=== PATIENT | female | born 1950 | race Caucasian/White ===

== ENCOUNTER 2019-05-29 19:53 | Inpatient (IN) | payer MEDICARE, OTHER ==
[2019-05-29 20:35] VITALS: BMI 33.5
[2019-05-29] MEDS ORDERED: Furosemide 20 MG/2 ML VIAL SLOW IVP SCH (21:45)
[2019-05-29] MEDS: Diltiazem 125 MG in Sodium Chloride 0.9% 100 ML IVPB SCH (22:46)
[2019-05-29] MEDS ORDERED: hydrOXYzine 25 MG TAB PO PRN (23:35)
[2019-05-29] MEDS: Nicotine 14 MG PATCH TD PRN (23:58)
--- NOTE | 2019-05-30 00:34 | PDOC.FPRHP ---
- History of Present Illness Chief Complaint: Dyspnea, LE Edema History of Present Illness: Pt is a 68 yo female with no significant PMH as she has not been to see a doctor in 10-15 years, 1.5 ppd smoking hx who presented to [facility] for increasing shortness of breath, LE edema. A year ago she began experiencing shortness of breath. A few months ago she experienced worsening SOB, LE edema. She now has difficulty ambulating room to room w/o becoming significantly dehydrated. She would be unable to walk a flight of stairs. Last week she noted her heart rate to be abnormal. She decided to make an appt with Dr. Glaser who noted a-fib and sent her to [facility]. At [facility] she was found to be in a-fib with RVR, BNP 269, hgb 5.2. She was administered dilt x 2 for rate control. She noted decreased from 1.5 ppd to 4 cigs 2/2 sob. She denies bleeding, hematochezia, melena, fever, chills, N/V, diarrhea, urinary changes. Endorsed intermittent constipation requring ducolax and occassionally milk of magnesia. She takes Advil 400 mg daily. Never had a colonoscopy. Unsure of family hx as adopted. - Allergies/Adverse Reactions Allergies Allergy/AdvReac Type Severity Reaction Status Date / Time No Known Drug Allergies Allergy Verified 05/29/19 22:32 - Home Medications Medication Instructions Recorded Confirmed Type Ibuprofen [Advil] 400 mg PO Q6HR PRN 05/29/19 05/29/19 History - History PMHx: Anxiety, Panic Attacks, GERD, Umbilical Hernia, L pneumothorax in her 20's PSHx: hysterectomy, tonsillectomy FHx: Adopted Social: Smokes 1.5 ppd, denies drugs, occasional alcohol use, lives in [place] with - Review of Systems General: reports: weight/appetite/sleep changes. denies: fever/chills ENT: denies: nasal congestion, rhinorrhea Respiratory: reports: shortness of breath, exercise intolerance. denies: cough , congestion Cardiovascular: reports: palpitation, edema, paroxysmal nocturnal dyspnea, orthopnea. denies: chest pain Gastrointestinal: reports: constipation. denies: nausea, vomiting, diarrhea, GI bleeding Genitourinary: denies: incontinence, dysuria Skin: denies: rashes, lesions Musculoskeletal: reports: swelling. denies: pain, tenderness Neurological: denies: numbness, syncope Psychological: denies: anxiety, depression - Vital signs BP: 115/68 HR: 102 RR: 20 Tmax: Afebrile Pox: 96% on RA Wt: 99.9 kg - Physical Exam Constitutional: NAD, awake, alert and oriented HEENT: PERRLA, EOMI Neck: FROM, trachea midline -Neck: Significant JVD present, pulsating -Heart: Irregular rate and rhythm FMR H&P: Results - Labs Result Diagrams: 05/30/19 01:57 05/30/19 01:57 - EKG Interpretation EKG: A-fib w/ RVR, no st changes - Radiology Interpretation Chest x-ray Status: image reviewed by me (Pulmonary congestion, cardiomegaly) FMR H&P: A/P - Problem List (1) Congestive heart failure Current Visit: Yes Status: Acute Code(s): I50.9 - HEART FAILURE, UNSPECIFIED (2) Atrial fibrillation with rapid ventricular response Current Visit: Yes Status: Acute Code(s): I48.91 - UNSPECIFIED ATRIAL FIBRILLATION (3) Microcytic anemia Current Visit: Yes Status: Acute Code(s): D50.9 - IRON DEFICIENCY ANEMIA, UNSPECIFIED (4) Leg edema Current Visit: Yes Status: Acute Code(s): R60.0 - LOCALIZED EDEMA (5) Umbilical hernia Current Visit: Yes Status: Acute Code(s): K42.9 - UMBILICAL HERNIA WITHOUT OBSTRUCTION OR GANGRENE - Plan Pt is a 68 yo female with no previous health care for 10-15 years who presents with a year history of progressively worsening dyspnea, LE edema who presents for atrial fibrillation w/ RVR, congestive heart failure, and microcytic anemia: # A-Fib w/ RVR - cardiology consult in the am - cardizem IV x 2 before admission, started cardizem drip on admission - rate well controlled # Congestive Heart Failure BNP 269, cardiomegaly on CXR - cardiology consult in the am - lasix 20 mg IV daily to help with diuresis - daily weights - consult cardiac rehab - consult PT/OT - Lipid panel pending - Mg pending - echo pending # Microcytic Anemia Hgb 5.2, MCV 60.1 - transfused 2 U prbc's, pending repeat h/h - monitor for increasing overload - pending iron studies # Insomnia - atarax qhs prn # Tobacco Use - nicotine patch prn # Umbilical Hernia - follow up outpt VTE: held due to anemia, possible bleed Fluids: None Diet: NPO Code: Full Dispo: > 2 days FMR H&P: Upper Level - Plan Date/Time: 05/30/19 0033 IAmy, have evaluated this patient and agree with findings/plan as outlined by sports broadcasting internship resident. Pertinent changes/additions are listed here. Pt is a 68yo F with no PMH who presents as transfer from [facility] after being sent by PCP, Dr. Hayes for evaluation of irregular P and tachycardia. Prior to todays office visit, she hadn't seen a doctor in 10-15yrs. In [facility] ED was found to be in Afib with RVR at a rate of 128. She received two doses of IV diltiazem with rate of 105 at transfer. She was also found to have hgb 5 , and was transfused 1u pRBCs. She reports 3 month hx of equal LE edema, orthopnea, SOB, and SNYDER. She reports 1 month hx of palpitations. She denies hematochezia/melena, unexplained wt loss. She takes Advil 800mg daily. She reports constipation with about 3 BM/wk, usually requiring stool softners or laxatives at least once weekly. VS: T97.8, P101, R20, BP115/68, O296% RA PE: Gen: obese, appears older than stated age, NAD HEENT: Moist MM, no LAD, + JVD Heart: Irregularly irregular, no murmurs or extra sounds. Distal pulses 2+ Lungs: Crackles at the bases b/l. No increased work of breathing Abd: soft, ttp periumbilical where there is a small reducible umbilical hernia, BS+ Ext: 3+ pitting edema b/l LE up to knees, no erythema, heat. Neg Homans sign b/ l Skin: no rashes or wounds present Psych: AOx3, appears anxious Pertinent Labs/Imaging: EKG: Afib with RVR CXR with enlarged heart and increased pulmonary vasculature. CTabd- fat containing abd hernia, small b/l pleural effusions, moderate pericardial effusion, cholelithiasis, mildy prominent L renal pelvis, nonobstructing renal calculi WBC 5.5, Hgb 5.2, Hct 18.8, MCV 60.1, Plt 425, PT 17.5, INR 1.4, PTT 31.6, BNP 269.4 A/P: Likely New Onset Acute CHF Exacerbation: 3-4 month hx of worsening SNYDER, orthopnea and LE edema. BNP 269. CXR with enlarged heart and vasc congestion. Echo pending. Will treat with IV Lasix. Will record strict IO and daily wt. Fluid restrict to 1800ml. Consult Cardiology to determine need for stress vs cath. NPO at midnight. Risk stratify with FLP, A1c. New Onset Afib with RVR Loading dose IV Diltiazem improved rate to 100. Will start diltiazem drip and titrate to keep rate <110. Will hold off on anticoagulation d/t Hgb of 5 and unk source. -[id number]- 3 vs HASBLED-3 -Order TSH -Consult cardiology as above for further recommendations. Microcytic Anemia: s/p 1U pRBC's, will order 1 more. Not reporting active GI bleed. Trend H/H 4h post 2nd unit. FOBT, Fe studies. Pericardial Effusion: Could be related to CHF vs malignancy vs idiopathic Cholelithiasis: Pt asymptomatic at this point. No need for RUQ us inpatient. LFT's wnl. Tobacco Use: Pt reports she is quitting today. Encourage cessation. Anxiety: Atarax prn. DVT Ppx: SCD GI Ppx: Protonix Dispo: LOS >48h Addendum - Attending - Attending Attestation Date/Time: 05/30/19 5448 I personally evaluated the patient and discussed the management with Dr. Noriega and Tana. I agree with the History, Examination, Assessment and Plan documented above with any addition or exceptions noted below.
[2019-05-30 02:34] LABS: Anion Gap 13 mmol/L (10-20); BUN (Urea Nitrogen) 8 mg/dL (9.8-20.1); Calc. Creatinine Clearance 139 mL/min (70-130); Calcium 8.7 mg/dL (7.8-10.44); Carbon Dioxide 21 mmol/L (23-31); Cardiac Risk 3.2 (Less than 4.5); Chloride 111 mmol/L (98-107); Estimated GFR-MDRD Greater than 90; Glucose 115 mg/dL (80-115); Iron 11 ug/dL (50-170); Magnesium 2.2 mg/dL (1.6-2.6); Potassium 3.6 mmol/L (3.5-5.1); Sodium 141 mmol/L (136-145); Transferrin, Serum 383 mg/dL (173-360)
[2019-05-30 02:35] LABS: #Lymphocytes 1.9 thou/uL (1.20-3.40); #Monocytes 0.4 thou/uL (0.11-0.59); %Basophils 0.7 % (0.0-1.0); %Eosinophils 0.7 % (0.0-10.0); %Monocytes 6.2 % (0.0-10.0); %Neutrophils 63.3 % (42.0-75.0); Anisocytosis MODERATE=16-30 cells (100X) (0-5/hpf); Hemoglobin 6.1 g/dL (12.0-16.0); Hypochromia MODERATE=16-30 cells (100X) (0-5/hpf); Large Platelets SLIGHT; MDiff Complete? YES; Mean Corpuscular HGB CONC 27.8 g/dL (32.0-36.0); Mean Corpuscular Hemoglobin 18.3 pg (27.0-31.0); Mean Corpuscular Volume 65.9 fL (78.0-98.0); Mean Platelet Volume 6.5 fL (7.4-10.4); Microcytosis MODERATE=15-30 cells (100X) (0-5/hpf); Platelet Count 390 thou/uL (130-400); Platelet Morphology Comment Appears Adequate; RBC Distribution Width 23.9 % (11.5-14.5); Red Blood Cell (RBC) Count 3.35 mill/uL (4.20-5.40); Reflex for Review?? YES; Tear Drops SLIGHT = 2-5 cells (100X) (0-1/hpf); White Blood Cell (WBC) Count 6.4 thou/uL (4.8-10.8)
[2019-05-30 04:23] LABS: Ferritin Less than 2.00 ng/mL (10-291)
[2019-05-30] MEDS ORDERED: hydrOXYzine 25 MG TAB PO SCH (06:00)
--- NOTE | 2019-05-30 07:41 | PDOC.FM ---
- Subjective Subjective: Patient was resting comfortably in her bed with her present at the time of evaluation. She admits to an improvement in her SOB and thinks that her LE edema has decreased. She denied any additional acute overnight events. - Objective Vital Signs & Weight: Vital Signs (12 hours) Temp Pulse Pulse Resp BP BP Pulse Ox 05/30/19 07:28 98.2 F 108 H 18 133/60 92 L 05/30/19 03:58 98.4 F 101 H 18 112/54 L 05/30/19 03:46 98.4 F 101 H 18 112/54 L 05/30/19 03:41 98.2 F 103 H 115/57 L 20 L 05/29/19 23:46 127 H 20 126/76 96 05/29/19 23:36 96 05/29/19 20:01 97.8 F 101 H 20 115/68 96 Weight Weight 100.698 kg I&O: 05/29/19 05/30/19 05/31/19 06:59 06:59 06:59 Intake Total 902.9 350 Output Total 600 Balance 302.9 350 Result Diagrams: 05/30/19 09:49 05/30/19 01:57 Phys Exam - Physical Examination Constitutional: NAD HEENT: PERRLA, moist MMs, sclera anicteric, oral pharynx no lesions Neck: supple, full ROM Respiratory: no wheezing, no rales, no rhonchi, clear to auscultation bilateral Cardiovascular: no significant murmur, no rub Rate-controlled A-Fib documented on library monitor Gastrointestinal: soft, non-tender, no distention, positive bowel sounds Periumbilical hernia - currently at baseline Musculoskeletal: pulses present +1 pitting edema bilaterally Neurological: non-focal, moves all 4 limbs Psychiatric: normal affect Skin: no rash Dx/Plan - Plan Plan: Patient is a 68 y/o female with no previous medical care for the past 10-15 years who presents via [facility] ED with > 12 months of SOB, SNYDER, LE edema and PND. anemia: 1. A-Fib w/ RVR - Per Resident Night Team, patient was found to have HR > 110s - s/p Diltiazem x2 in [facility] ED - currently on Diltiazem ggt w/ adequate rate control - Holding anticoagulation due to #3 - TSH: 0.98 - Cardiology Consult: Pending 2. Congestive Heart Failure - BNP: 269 - CXR: Cardiomegaly - TTE: Pending - Will start Lasix 20 mg IV daily for diuresis - Daily Weights w/ Strict I&Os - Cardiac Rehab Consult: Pending - PT/OT Consult: Pending - Fasting Lipid Panel: 12.1% 10 Year Risk - Will initiate Moderate Intensity Statin - M.2 3. Microcytic Anemia - Chronic Iron Deficiency vs. Blood Loss - Hgb 5.2 / MCV 60.1 - s/p 2U pRBCs - repeat H&H currently pending - Iron: 11 / TIBC: 464 / %TIBC: 2 / Transferrin: 383 / Ferritin: < 2 - FOBT: Pending - GI Consult: Pending 4. Insomnia - Atarax PRN - Anxiety may be contributing factor 5. Tobacco Abuse - Nicotine 14 mg Patch PRN 6. Umbilical Hernia - Encouraged to follow-up as an outpatient PCP: CC Code: Full Diet: NPO Fluids: None Activity: Ambulate w/ Assist Dispo: Patient is currently admitted to the Telemetry Floor for further evaluation. Will consult Cardiology later this AM. Continue diuresis and monitor cardiopulmonary status closely. Consider GI consult as per above. Expected LOS > 48H Addendum - Attending - Attending Attestation Date/Time: 05/30/19 6184 I personally evaluated the patient and discussed the management with Dr. Simpson. I agree with the History, Examination, Assessment and Plan documented above with any addition or exceptions noted below. The patient is being transfused for the severe anemia. Consulting GI to eval for scope. Cardiology is being consulted for new onset a.fib and suspected chf. Will get echo. Continue diltiazem drip.
[2019-05-30] MEDS: Furosemide 20 MG/2 ML VIAL SLOW IVP SCH (08:19)
[2019-05-30] MEDS ORDERED: Prevnar 13-Val Conj/PF 0.5 ML SYRINGE IM ONE (09:00)
[2019-05-30] MEDS ORDERED: FLU VACC TS2019-20(65YR UP)/PF 180 MCG/0.5 ML SYRINGE IM ONE (09:00)
[2019-05-30] MEDS ORDERED: Famotidine 20 MG TAB PO SCH (09:00)
[2019-05-30 10:04] LABS: Hemoglobin 7.4 g/dL (12.0-16.0); Platelet Count 399 thou/uL (130-400)
[2019-05-30] MEDS: Diltiazem 125 MG in Sodium Chloride 0.9% 100 ML IVPB SCH (11:15)
--- NOTE | 2019-05-30 12:42 | CON ---
DATE OF CONSULTATION: HISTORY OF PRESENT ILLNESS: Naila Stock is a 68-year-old white female, who presented yesterday to the emergency room in [place] for increased shortness of breath. Over the last year, she has noted that her heart seems to be very rapid at times. Also over the last year, she has had increased shortness of breath and dyspnea on exertion, but no PND. She also started noticing over the last 2 months that she would get peripheral edema. She went to the emergency room in [place] , was found to be in atrial fibrillation with fast ventricular response and was found to have a hemoglobin of 5.2. She denies any chest discomfort. She denies any melena or hematochezia. She does take ibuprofen 400 mg at bedtime every day. PAST MEDICAL HISTORY: She denies any history of hypertension, diabetes, or hypercholesterolemia. She does have history of anxiety and panic attacks, GERD , and umbilical hernia. She has history of a left pneumothorax in her 20s. OPERATIONS: Tonsillectomy and hysterectomy. SOCIAL HISTORY: She smokes 1 1/2 packs per day. She rarely drinks. FAMILY HISTORY: She is adopted. REVIEW OF SYSTEMS: A 10-point review of systems except as noted above is unremarkable. PHYSICAL EXAMINATION: VITAL SIGNS: Blood pressure 116/56, pulse of 99, currently on Cardizem 10 mg/ hour. HEENT: PERRL. NECK: Supple. CHEST: Reveals faint crackles at the bases. CARDIOVASCULAR: S1 and S2 were normal without any S3 or S4. There were no murmurs. Carotid upstrokes normal without bruits. ABDOMEN: Normal bowel sounds without tenderness or organomegaly. There was an umbilical hernia. EXTREMITIES: Revealed 1+ pretibial edema. NEUROLOGIC: Grossly intact. SKIN: Warm and dry. LABORATORY DATA: EKG in [place] revealed atrial fibrillation with rapid ventricular response of 114 per minute. Poor R-wave progression. Initial hemoglobin was 5.2, which now up to 7.4 after transfusion. White count 5500. She has low RBC indices. INR 1.4. Sodium 141, potassium 3.6, chloride 111, carbon dioxide 21, BUN 8, creatinine 0.63. Transferrin is 383, ferritin less than 2.00, iron 11, TIBC 464. Cholesterol 68, triglycerides 81, HDL 21, LDL 31. Troponin I is normal. TSH is normal. IMPRESSION: 1. Iron deficiency anemia with initial hemoglobin of 5.2. 2. Atrial fibrillation with rapid ventricular response. In the emergency room in [place], she received Cardizem IV 20 mg followed by 25 mg. Currently, she is on Cardizem drip. 3. Smoker. PLAN: The patient is gently being diuresed. She will be started on famotidine 20 mg b.i.d. She will be seen by Gastroenterology. From a cardiac standpoint, she is not a candidate for anticoagulation with presumed gastrointestinal blood loss. The only option is rate control, which currently is being achieved with the intravenous Cardizem. This will be continued and will gradually transition to p.o. Cardizem. Echocardiogram will be performed to assess left ventricular function. Job ID: [id number] [facility]
[2019-05-30] MEDS ORDERED: Furosemide 20 MG/2 ML VIAL SLOW IVP SCH (15:15)
--- NOTE | 2019-05-30 15:53 | CON ---
DATE OF CONSULTATION: 05/30/2019 CHIEF COMPLAINT: Swelling of her lower extremities and shortness of breath on exertion. HISTORY OF PRESENT ILLNESS: Ms. Stock is a 68-year-old woman, who has not been to the doctor in many years. She over the last year has noted progressive shortness of breath on exertion. More recently, she has had worsening lower extremity edema and shortness of breath just walking across the room, such that she ultimately went onto the emergency room yesterday for further evaluation. She was found to have severe anemia and atrial fibrillation with rapid ventricular response. She has had no abdominal pain, although she has had some increased pressure around the umbilicus and gas lately. She has had no nausea or vomiting. She has had no red blood in the stool. She does have brown soft normal stools. No black stools. No diarrhea or constipation. Her weight has been stable. She has never had a colonoscopy. She takes ibuprofen 400 mg each night for generalized aches. Sometimes she takes 400 mg during the day as well. She also has taken Laura-Anaconda a couple times a week, effervescent with aspirin for some intermittent dyspepsia. She also takes the fruit chews antacid, Laura-Anaconda intermittently as well. This does help somewhat temporarily. PAST MEDICAL HISTORY: Otherwise negative. New-onset atrial fibrillation with RVR. Newly diagnosed iron-deficiency anemia. PAST SURGICAL HISTORY: 1. She had a chest tube for collapsed lung. 2. She has had tonsillectomy. 3. Partial hysterectomy. FAMILY HISTORY: Not known as she is adopted. SOCIAL HISTORY: She smokes half a pack to a pack a day. No alcohol. No drugs. ALLERGIES: NO KNOWN DRUG ALLERGIES. MEDICATIONS: Prior to admission, ibuprofen and Laura-Anaconda as noted above. REVIEW OF SYSTEMS: Negative x10 systems reviewed except as stated in history of present illness. PHYSICAL EXAMINATION: VITAL SIGNS: Temperature 98.4, pulse 99 to 109, oxygen saturation 92%, and blood pressure 116/56. GENERAL: She is in no acute distress. Alert and oriented x3. HEENT: Eyes have no scleral icterus. Oropharynx is clear without lesions. No cervical or supraclavicular lymphadenopathy. LUNGS: Clear to auscultation bilaterally. HEART: Irregular S1 and S2 without murmur. ABDOMEN: Soft, nontender, and nondistended. Bowel sounds are present. EXTREMITIES: She has trace lower extremity edema. LABORATORY DATA: Her hemoglobin on presentation to the emergency room was 5.2. She received 2 units transfusion. Her hemoglobin has improved to 7.4. White blood cell count 6.4, MCV 60, platelets 390. INR 1.4. Creatinine 0.63. Iron 11, TIBC 464, and ferritin 2. Bilirubin 0.9, AST 12, ALT 10, and alkaline phosphatase 82. BNP 269. Albumin 4.3. TSH 0.9. IMPRESSION: 1. Severe iron-deficiency anemia, most likely secondary to chronic gastrointestinal blood loss. She is status post 2 units transfusion. Her hemoglobin responded appropriately from 5.2 to 7.4 after transfusion. 2. Atrial fibrillation with rapid ventricular response. She has been rate controlled with diltiazem. RECOMMENDATIONS: 1. Start proton pump inhibitor. 2. Transfuse another unit of red blood cell now. 3. Discontinue aspirin and NSAIDs. 4. EGD and colonoscopy tomorrow. Job ID: [id number]
[2019-05-30] MEDS: Acetaminophen 325 MG TAB PO PRN ×2 (18:09→23:59)
[2019-05-30 18:31] LABS: Hemoglobin 7.4 g/dL (12.0-16.0); Mean Corpuscular HGB CONC 28.7 g/dL (32.0-36.0); Mean Corpuscular Hemoglobin 19.6 pg (27.0-31.0); Mean Corpuscular Volume 68.4 fL (78.0-98.0); Platelet Count 360 thou/uL (130-400); RBC Distribution Width 24.8 % (11.5-14.5); Red Blood Cell (RBC) Count 3.77 mill/uL (4.20-5.40); White Blood Cell (WBC) Count 8.1 thou/uL (4.8-10.8)
[2019-05-30] MEDS: GoLYTELY 4,000 ml Bottle PO SCH ×2 (19:35→20:27)
[2019-05-30] MEDS: Nicotine 14 MG PATCH TD PRN (23:59)
[2019-05-31] MEDS: Diltiazem 125 MG in Sodium Chloride 0.9% 100 ML IVPB SCH ×2 (02:41→15:41)
[2019-05-31 04:55] LABS: Anion Gap 12 mmol/L (10-20); BUN (Urea Nitrogen) 7 mg/dL (9.8-20.1); Calc. Creatinine Clearance 149 mL/min (70-130); Calcium 8.7 mg/dL (7.8-10.44); Carbon Dioxide 24 mmol/L (23-31); Chloride 109 mmol/L (98-107); Estimated GFR-MDRD Greater than 90; Glucose 102 mg/dL (80-115); Potassium 3.3 mmol/L (3.5-5.1); Sodium 142 mmol/L (136-145)
[2019-05-31 06:08] LABS: #Eosinphils 0.1 thou/uL (0.0-0.7); #Lymphocytes 2.5 thou/uL (1.20-3.40); #Monocytes 0.6 thou/uL (0.11-0.59); #Neutrophils 4.8 thou/uL (1.40-6.50); %Basophils 0.6 % (0.0-1.0); %Eosinophils 0.9 % (0.0-10.0); %Lymphocytes 31.6 % (21.0-51.0); %Monocytes 6.9 % (0.0-10.0); Anisocytosis MODERATE=16-30 cells (100X) (0-5/hpf); Elliptocytes SLIGHT = 2-5 cells (100X) (0-1/hpf); Hemoglobin 7.2 g/dL (12.0-16.0); Hypochromia MODERATE=16-30 cells (100X) (0-5/hpf); Large Platelets SLIGHT; MDiff Complete? YES; Mean Corpuscular HGB CONC 28.5 g/dL (32.0-36.0); Mean Corpuscular Hemoglobin 19.6 pg (27.0-31.0); Mean Corpuscular Volume 68.8 fL (78.0-98.0); Mean Platelet Volume 6.3 fL (7.4-10.4); Microcytosis MODERATE=15-30 cells (100X) (0-5/hpf); Platelet Count 386 thou/uL (130-400); Platelet Morphology Comment Appears Adequate; Polychromasia SLIGHT = 2-3 cells (100X) (0-2/hpf); RBC Distribution Width 25.4 % (11.5-14.5); Red Blood Cell (RBC) Count 3.69 mill/uL (4.20-5.40); Tear Drops SLIGHT = 2-5 cells (100X) (0-1/hpf)
[2019-05-31] MEDS ORDERED: Loperamide HCl 2 MG CAP PO PRN (07:31)
[2019-05-31] MEDS ORDERED: Cepastat Lozenges 1 LOZ PO PRN (07:31)
[2019-05-31] MEDS ORDERED: Ondansetron PF 4 MG/2 ML Vial IVP PRN (07:31)
[2019-05-31] MEDS ORDERED: HYDROcodone/Acetaminophen 5/325 mg Tablet PO PRN (07:31)
[2019-05-31] MEDS ORDERED: Diabetic Tussin 200 MG/10 ML UDCUP PO PRN (07:31)
[2019-05-31] MEDS ORDERED: Labetalol HCl 100 MG/20 ML VIAL SLOW IVP PRN (07:31)
[2019-05-31] MEDS ORDERED: Artificial Tears 18 DROP/0.9 ML EA EYE PRN (07:31)
[2019-05-31] MEDS ORDERED: Senokot S 8.6-50 MG TAB PO PRN (07:31)
[2019-05-31] MEDS ORDERED: Bisacodyl 10 MG SUPP PR PRN (07:31)
[2019-05-31] MEDS ORDERED: Loratadine 10 MG TAB PO PRN (07:31)
[2019-05-31] MEDS ORDERED: Ondansetron ODT 4 MG TAB PO PRN (07:31)
[2019-05-31] MEDS ORDERED: Sodium Chloride 0.65% Nasal 44 ML BOT EA NARE PRN (07:31)
[2019-05-31] MEDS ORDERED: Iron, Sodium Ferric Gluconate 250 MG in Sodium Chloride 0.9% 250 ML 250 ML IVPB SCH (07:45)
[2019-05-31] MEDS ORDERED: Iron Sucrose Complex 200 MG in Sodium Chloride 0.9% 250 ML 250 ML IVPB SCH (07:45)
--- NOTE | 2019-05-31 09:58 | PDOC.HOSPP ---
- Subjective Encounter Date: 05/31/19 Encounter Time: 07:45 Subjective: Patient seen and examined. pt had transfusional reaction last night - Objective Vital Signs & Weight: Vital Signs (12 hours) Temp Pulse Resp BP Pulse Ox 05/31/19 07:30 98.0 F 95 18 111/56 L 92 L 05/31/19 04:00 97.7 F 129 H 18 119/67 97 05/30/19 23:00 97.8 F 117 H 20 133/60 Weight Weight 217 lb 6.4 oz I&O: 05/30/19 05/31/19 06/01/19 06:59 06:59 06:59 Intake Total 902.9 2522 Output Total 600 Balance 302.9 2522 Result Diagrams: 05/31/19 04:16 05/31/19 04:16 Radiology Reviewed by me: Yes EKG Reviewed by me: Yes Hospitalist ROS - Review of Systems ENT: denies: ear pain, ear discharge, nose pain, nose discharge, nose congestion , mouth pain, mouth swelling, throat pain, throat swelling, other Respiratory: denies: cough, dry, shortness of breath, hemoptysis, SOB with excertion, pleuritic pain, sputum, wheezing, other Cardiovascular: denies: chest pain, palpitations, orthopnea, paroxysmal noc. dyspnea, edema, light headedness, other Gastrointestinal: denies: nausea, vomiting, abdominal pain, diarrhea, constipation, melena, hematochezia, other Genitourinary: denies: dysuria, frequency, incontinence, hematuria, retention, other Musculoskeletal: denies: neck pain, shoulder pain, arm pain, back pain, hand pain, leg pain, foot pain, other - Medication Medications: Active Medications Generic Name Dose Route Start Last Admin Trade Name Freq PRN Reason Stop Dose Admin Furosemide 20 mg 05/30/19 09:00 05/30/19 08:19 Lasix SLOW IVP 20 mg DAILY ROMA Administration Hydroxyzine HCl 25 mg 05/29/19 23:35 05/29/19 23:52 Atarax PO 25 mg HS PRN Administration insomnia Diltiazem HCl 125 mg/ Sodium 125 mls @ 10 mls/hr 05/29/19 21:45 05/31/19 02: 41 Chloride IVPB 125 mls INF ROMA Administration Protocol 10 MG/HR Nicotine 14 mg 05/29/19 23:42 05/30/19 23:59 Nicoderm Patch TD 14 mg Q24HR PRN Administration Smoking Cessation - Exam General Appearance: NAD, awake alert Eye: PERRL, anicteric sclera ENT: normocephalic atraumatic, no oropharyngeal lesions Neck: supple, symmetric, no JVD Heart: no murmur, no gallops, no rubs, irregular Respiratory: CTAB, no wheezes, no rales, no ronchi Gastrointestinal: soft, non-tender, non-distended, normal bowel sounds Extremities: no cyanosis, no clubbing Skin: normal turgor, no lesions Neurological: no focal deficits Musculoskeletal: normal tone, normal strength Hosp A/P (1) GI bleed Code(s): K92.2 - GASTROINTESTINAL HEMORRHAGE, UNSPECIFIED Status: Acute (2) Anemia due to blood loss Code(s): D50.0 - IRON DEFICIENCY ANEMIA SECONDARY TO BLOOD LOSS (CHRONIC) Status: Acute (3) Anemia, iron deficiency Code(s): D50.9 - IRON DEFICIENCY ANEMIA, UNSPECIFIED Status: Acute (4) Acute diastolic heart failure Code(s): I50.31 - ACUTE DIASTOLIC (CONGESTIVE) HEART FAILURE Status: Acute (5) Atrial fibrillation with rapid ventricular response Code(s): I48.91 - UNSPECIFIED ATRIAL FIBRILLATION Status: Acute - Plan old records reviewed/req 05/31/19 continue cardizem for rate control continue protonix will give IV iron today not a candidate for chronic anticoagulation medication reviewed and continue to provide symptomatic treatment and supportive care today EGD, colonoscopy
[2019-05-31] MEDS ORDERED: PROPOFOL 200 MG/20 ML VIAL ONE (10:19)
[2019-05-31] MEDS: Furosemide 20 MG/2 ML VIAL SLOW IVP SCH (11:27)
[2019-05-31] MEDS: Acetaminophen 500 MG TAB PO PRN ×3 (11:28→23:24)
[2019-05-31] MEDS ORDERED: Diltiazem 125 MG in Sodium Chloride 0.9% 100 ML IVPB SCH ×2 (17:51→22:00)
[2019-05-31] MEDS ORDERED: Digoxin 0.5 MG/2 ML AMP SLOW IVP SCH (18:00)
[2019-06-01] MEDS: Nicotine 14 MG PATCH TD PRN (01:37)
[2019-06-01 05:06] LABS: Anion Gap 12 mmol/L (10-20); BUN (Urea Nitrogen) 8 mg/dL (9.8-20.1); Calc. Creatinine Clearance 157 mL/min (70-130); Calcium 8.6 mg/dL (7.8-10.44); Carbon Dioxide 23 mmol/L (23-31); Chloride 110 mmol/L (98-107); Estimated GFR-MDRD Greater than 90; Glucose 99 mg/dL (80-115); Sodium 142 mmol/L (136-145)
[2019-06-01 05:44] LABS: #Basophils 0.1 thou/uL (0.0-0.2); #Eosinphils 0.1 thou/uL (0.0-0.7); #Monocytes 0.7 thou/uL (0.11-0.59); #Neutrophils 4.9 thou/uL (1.40-6.50); %Basophils 0.7 % (0.0-1.0); %Eosinophils 0.8 % (0.0-10.0); %Lymphocytes 26.3 % (21.0-51.0); %Monocytes 9.1 % (0.0-10.0); %Neutrophils 63.1 % (42.0-75.0); Anisocytosis MODERATE=16-30 cells (100X) (0-5/hpf); Hemoglobin 6.7 g/dL (12.0-16.0); Hypochromia MODERATE=16-30 cells (100X) (0-5/hpf); Large Platelets SLIGHT; MDiff Complete? YES; Mean Corpuscular HGB CONC 27.7 g/dL (32.0-36.0); Mean Corpuscular Hemoglobin 19.3 pg (27.0-31.0); Mean Corpuscular Volume 69.8 fL (78.0-98.0); Mean Platelet Volume 6.4 fL (7.4-10.4); Microcytosis MODERATE=15-30 cells (100X) (0-5/hpf); Platelet Count 309 thou/uL (130-400); Platelet Morphology Comment Appears Adequate; RBC Distribution Width 25.8 % (11.5-14.5); Red Blood Cell (RBC) Count 3.49 mill/uL (4.20-5.40); White Blood Cell (WBC) Count 7.7 thou/uL (4.8-10.8)
[2019-06-01] MEDS ORDERED: Iron Sucrose Complex 200 MG in Sodium Chloride 0.9% 250 ML 250 ML IVPB SCH (07:30)
[2019-06-01] MEDS ORDERED: Iron, Sodium Ferric Gluconate 250 MG in Sodium Chloride 0.9% 100 ML IVPB SCH (07:45)
[2019-06-01] MEDS: Potassium Chloride 20 MEQ TAB PO SCH ×2 (08:43→11:31)
[2019-06-01] MEDS: Furosemide 20 MG/2 ML VIAL SLOW IVP SCH (08:44)
[2019-06-01] MEDS: Digoxin 0.25 MG TAB PO SCH (08:44)
--- NOTE | 2019-06-01 14:14 | PDOC.HOSPP ---
- Subjective Encounter Date: 06/01/19 Encounter Time: 07:45 Subjective: Patient seen and examined. No new complaints. No overnight events - Objective Vital Signs & Weight: Vital Signs (12 hours) Temp Pulse Resp BP Pulse Ox 06/01/19 11:01 98.7 F 92 20 118/58 L 94 L 06/01/19 08:44 95 06/01/19 08:37 97.6 F 98 20 115/56 L 92 L 06/01/19 03:35 97.7 F 90 20 115/57 L 95 Weight Weight 219 lb 14.4 oz I&O: 05/31/19 06/01/19 06/02/19 06:59 06:59 06:59 Intake Total 2522 875 Balance 2522 875 Result Diagrams: 06/01/19 04:25 06/01/19 04:25 EKG Reviewed by me: Yes Hospitalist ROS - Review of Systems ENT: denies: ear pain, ear discharge, nose pain, nose discharge, nose congestion , mouth pain, mouth swelling, throat pain, throat swelling, other Respiratory: denies: cough, dry, shortness of breath, hemoptysis, SOB with excertion, pleuritic pain, sputum, wheezing, other Cardiovascular: denies: chest pain, palpitations, orthopnea, paroxysmal noc. dyspnea, edema, light headedness, other Gastrointestinal: denies: nausea, vomiting, abdominal pain, diarrhea, constipation, melena, hematochezia, other Genitourinary: denies: dysuria, frequency, incontinence, hematuria, retention, other Musculoskeletal: denies: neck pain, shoulder pain, arm pain, back pain, hand pain, leg pain, foot pain, other - Medication Medications: Active Medications Generic Name Dose Route Start Last Admin Trade Name Freq PRN Reason Stop Dose Admin Acetaminophen 500 mg 05/31/19 07:31 05/31/19 23:24 Tylenol PO 500 mg Q6H PRN Administration Mild Pain (1-3) Hydrocodone Bitart/Acetaminophen 1 tab 05/31/19 07:31 06/01/19 01:42 [place] 5/325 PO 1 tab Q4H PRN Administration Moderate Pain (4-6) Digoxin 0.25 mg 06/01/19 09:00 06/01/19 08:44 Lanoxin PO 0.25 mg DAILY ROMA Administration Hydroxyzine HCl 25 mg 05/29/19 23:35 05/29/19 23:52 Atarax PO 25 mg HS PRN Administration insomnia Nicotine 14 mg 05/29/19 23:42 06/01/19 01:37 Nicoderm Patch TD 14 mg Q24HR PRN Administration Smoking Cessation Pantoprazole Sodium 40 mg 05/31/19 09:00 06/01/19 08:44 Protonix PO 40 mg DAILY ROMA Administration Sodium Chloride 10 ml 05/31/19 09:00 06/01/19 08:45 Flush - Normal Saline IVF 10 ml Q12HR ROMA Administration Sodium Chloride 10 ml 05/31/19 07:39 05/31/19 18:51 Flush - Normal Saline IVF 10 ml PRN PRN Administration Saline Flush - Exam General Appearance: NAD, awake alert Eye: PERRL, anicteric sclera ENT: normocephalic atraumatic, no oropharyngeal lesions Neck: supple, symmetric, no JVD Heart: no murmur, no gallops, irregular Respiratory: CTAB, no wheezes, no rales, no ronchi Gastrointestinal: soft, non-tender, non-distended, normal bowel sounds Extremities: no cyanosis, no clubbing, no edema Skin: normal turgor, no lesions Neurological: no focal deficits Musculoskeletal: normal tone, normal strength Psychiatric: normal affect, normal behavior Hosp A/P (1) GI bleed Code(s): K92.2 - GASTROINTESTINAL HEMORRHAGE, UNSPECIFIED Status: Acute (2) Anemia due to blood loss Code(s): D50.0 - IRON DEFICIENCY ANEMIA SECONDARY TO BLOOD LOSS (CHRONIC) Status: Acute (3) Anemia, iron deficiency Code(s): D50.9 - IRON DEFICIENCY ANEMIA, UNSPECIFIED Status: Acute (4) Acute diastolic heart failure Code(s): I50.31 - ACUTE DIASTOLIC (CONGESTIVE) HEART FAILURE Status: Acute (5) Atrial fibrillation with rapid ventricular response Code(s): I48.91 - UNSPECIFIED ATRIAL FIBRILLATION Status: Acute - Plan old records reviewed/req, plan discussed w/ family 05/31/19 continue cardizem for rate control continue protonix will give IV iron today not a candidate for chronic anticoagulation medication reviewed and continue to provide symptomatic treatment and supportive care today EGD, colonoscopy 06/01/19 start cardizem CD 180 mg po daily wean off cardizem drip give venofer add ferrous sulfate PO expecting dc tomorrow outpt decision for anticoagulation
--- NOTE | 2019-06-01 17:26 | PRG ---
DATE OF SERVICE: 06/01/2019 SUBJECTIVE: Ms. Stock has no acute complaints. She is tolerating her diet well without any problems. She had a brown bowel movement today. Her platelet count was a little bit lower today, so she was given another dose of IV iron. OBJECTIVE: VITAL SIGNS: Temperature 98.7, pulse 88, and blood pressure 119/58. GENERAL: She is in no acute distress. Alert and oriented x3. LUNGS: Clear to auscultation bilaterally. HEART: Regular rate and rhythm without murmur. ABDOMEN: Soft, nontender, and nondistended. Bowel sounds are present. EXTREMITIES: 1 to 2+ pitting lower extremity edema. LABORATORY DATA: White blood cell count 7.7, hemoglobin 6.7, and platelets 309. Creatinine 0.55. Iron 11, TIBCs 464, and ferritin 2. IMPRESSION: Severe iron deficiency anemia. Her hemoglobin is a little bit lower today, but she has had no overt bleeding. Esophagogastroduodenoscopy was negative for bleeding source. Biopsies were obtained to rule out celiac disease. Colonoscopy was negative for bleeding source. I did remove a 6 mm polyp from the descending colon. She had mild diverticulosis and internal hemorrhoids. RECOMMENDATIONS: 1. She is receiving IV iron. She will likely benefit from blood transfusion, if her hemoglobin is not significantly improved tomorrow. She had a questionable transfusion reaction and only received half a unit with her third unit. She did receive 2 units prior to that. 2. Follow up in the office for outpatient capsule endoscopy to evaluate the small bowel between where the scopes do not reach. Job ID: [id number]
[2019-06-01] MEDS: Ferrous Sulfate 325 MG TAB PO SCH (17:38)
--- NOTE | 2019-06-01 17:40 | OP ---
DATE OF PROCEDURE: 05/31/2019 PROCEDURES PERFORMED: 1. Esophagogastroduodenoscopy with biopsy. 2. Colonoscopy with snare polypectomy. PREOPERATIVE DIAGNOSIS: Iron-deficiency anemia. DESCRIPTION OF PROCEDURE: Informed consent was obtained from the patient. She was sedated with total intravenous anesthesia. The bite block was placed and the endoscope was advanced easily to the second portion of the duodenum and retroflexion was performed in the stomach. The esophagus was normal. The GE junction was normal. The stomach was normal including retroflexed views. The pylorus and first and second portions of the duodenum were normal. Biopsies were taken from the duodenum to rule out celiac disease. The patient was turned around. Rectal exam was performed and was normal. The colonoscope was advanced to the terminal ileum without difficulty. The mucosa of the terminal ileum was normal. There was mild sigmoid diverticulosis noted. I removed a 6-mm polyp from the descending colon by cold snare polypectomy. Moderate internal hemorrhoids were noted on retroflexed views. The colonoscopy was otherwise normal. IMPRESSION: 1. Normal esophagogastroduodenoscopy. Duodenal biopsies taken to rule out celiac disease. 2. 6-mm descending colon polyp, removed by cold snare. 3. Mild sigmoid diverticulosis. 4. Moderate internal hemorrhoids. RECOMMENDATIONS: 1. Await histopathology. 2. Avoid NSAIDs. 3. Outpatient capsule endoscopy to evaluate for bleeding source. 4. Follow up in GI Clinic. Job ID: [id number]
--- NOTE | 2019-06-01 22:20 | RAD ---
Chest AP view INDICATION: Hypoxia COMPARISON: Prior exam dated May 29, 2019 FINDINGS: Lungs:Chronic lung changes are stable Cardiac silhouette:Moderate cardiomegaly persists Pulmonary vasculature:Pulmonary vascular congestion is mildly prominent but slightly improved from th e comparison exam. Pleural spaces:Tiny bilateral pleural effusions persist Upper abdomen:No abnormality seen. Osseous structures: No acute osseous abnormality. Additional findings:None. IMPRESSION: Mild interval improvement in the pulmonary vascular congestion. Persistent cardiomegaly w ith mild pulmonary vascular congestion and small bilateral pleural effusions consistent with persistent [id number]-[id number] CHF.
[2019-06-01 22:35] LABS: Hemoglobin 7.3 g/dL (12.0-16.0)
[2019-06-01 22:58] LABS: ALT (SGPT) 13 U/L (8-55); AST (SGOT) 13 U/L (5-34); Albumin 3.8 g/dL (3.4-4.8); Alkaline Phosphatase 70 U/L (40-110); Anion Gap 11 mmol/L (10-20); BUN (Urea Nitrogen) 6 mg/dL (9.8-20.1); Bilirubin, Total 1.2 mg/dL (0.2-1.2); Calc. Creatinine Clearance 148 mL/min (70-130); Carbon Dioxide 26 mmol/L (23-31); Chloride 110 mmol/L (98-107); Estimated GFR-MDRD Greater than 90; Globulin 2.4 g/dL (2.4-3.5); Glucose 97 mg/dL (80-115); Potassium 3.7 mmol/L (3.5-5.1); Protein, Total 6.2 g/dL (6.0-8.3); Sodium 143 mmol/L (136-145)
[2019-06-02 05:07] LABS: Anion Gap 12 mmol/L (10-20); BUN (Urea Nitrogen) 6 mg/dL (9.8-20.1); Calc. Creatinine Clearance 161 mL/min (70-130); Calcium 8.7 mg/dL (7.8-10.44); Carbon Dioxide 25 mmol/L (23-31); Chloride 110 mmol/L (98-107); Estimated GFR-MDRD Greater than 90; Glucose 97 mg/dL (80-115); Magnesium 2.1 mg/dL (1.6-2.6); Potassium 3.6 mmol/L (3.5-5.1); Sodium 143 mmol/L (136-145)
[2019-06-02 05:14] LABS: Digoxin 0.53 ng/mL (0.8-2.0)
[2019-06-02 05:51] LABS: #Eosinphils 0.1 thou/uL (0.0-0.7); #Lymphocytes 2.2 thou/uL (1.20-3.40); #Monocytes 0.7 thou/uL (0.11-0.59); #Neutrophils 4.3 thou/uL (1.40-6.50); %Basophils 0.7 % (0.0-1.0); %Eosinophils 1.1 % (0.0-10.0); %Lymphocytes 30.3 % (21.0-51.0); %Monocytes 9.5 % (0.0-10.0); %Neutrophils 58.4 % (42.0-75.0); Anisocytosis MODERATE=16-30 cells (100X) (0-5/hpf); Hemoglobin 7.3 g/dL (12.0-16.0); Hypochromia MODERATE=16-30 cells (100X) (0-5/hpf); MDiff Complete? YES; Mean Corpuscular HGB CONC 27.4 g/dL (32.0-36.0); Mean Corpuscular Hemoglobin 19.3 pg (27.0-31.0); Mean Corpuscular Volume 70.3 fL (78.0-98.0); Mean Platelet Volume 6.4 fL (7.4-10.4); Platelet Count 292 thou/uL (130-400); Platelet Morphology Comment Appears Adequate; Polychromasia SLIGHT = 2-3 cells (100X) (0-2/hpf); RBC Distribution Width 26.4 % (11.5-14.5); Red Blood Cell (RBC) Count 3.77 mill/uL (4.20-5.40); White Blood Cell (WBC) Count 7.3 thou/uL (4.8-10.8)
[2019-06-02] MEDS ORDERED: Iron Sucrose Complex 200 MG in Sodium Chloride 0.9% 250 ML 250 ML IVPB SCH (08:15)
[2019-06-02] MEDS ORDERED: Furosemide 20 MG TAB PO SCH (09:00)
[2019-06-02] MEDS ORDERED: Furosemide 40 MG TAB PO SCH (09:00)
[2019-06-02] MEDS: Digoxin 0.25 MG TAB PO SCH (09:23)
[2019-06-02] MEDS: Ferrous Sulfate 325 MG TAB PO SCH (09:23)
[2019-06-02] MEDS ORDERED: Iron, Sodium Ferric Gluconate 250 MG in Sodium Chloride 0.9% 100 ML IVPB SCH (10:00)
--- NOTE | 2019-06-02 10:48 | PDOC.HOSPP ---
- Subjective Encounter Date: 06/02/19 Encounter Time: 07:30 Subjective: Patient seen and examined. No new complaints. No overnight events - Objective Vital Signs & Weight: Vital Signs (12 hours) Temp Pulse Resp BP BP Pulse Ox 06/02/19 09:23 95 06/02/19 08:00 97.6 F 95 16 121/68 95 06/02/19 03:52 97.9 F 95 18 101/50 L 95 06/01/19 23:49 98.9 F 96 17 109/55 L 96 Weight Weight 220 lb 6.4 oz I&O: 06/01/19 06/02/19 06/03/19 06:59 06:59 06:59 Intake Total 875 870 Balance 875 870 Result Diagrams: 06/02/19 04:16 06/02/19 04:16 Hospitalist ROS - Review of Systems ENT: denies: ear pain, ear discharge, nose pain, nose discharge, nose congestion , mouth pain, mouth swelling, throat pain, throat swelling, other Respiratory: denies: cough, dry, shortness of breath, hemoptysis, SOB with excertion, pleuritic pain, sputum, wheezing, other Cardiovascular: denies: chest pain, palpitations, orthopnea, paroxysmal noc. dyspnea, edema, light headedness, other Gastrointestinal: denies: nausea, vomiting, abdominal pain, diarrhea, constipation, melena, hematochezia, other Genitourinary: denies: dysuria, frequency, incontinence, hematuria, retention, other - Medication Medications: Active Medications Generic Name Dose Route Start Last Admin Trade Name Freq PRN Reason Stop Dose Admin Acetaminophen 500 mg 05/31/19 07:31 05/31/19 23:24 Tylenol PO 500 mg Q6H PRN Administration Mild Pain (1-3) Hydrocodone Bitart/Acetaminophen 1 tab 05/31/19 07:31 06/01/19 01:42 [place] 5/325 PO 1 tab Q4H PRN Administration Moderate Pain (4-6) Digoxin 0.25 mg 06/01/19 09:00 06/02/19 09:23 Lanoxin PO 0.25 mg DAILY ROMA Administration Diltiazem HCl 180 mg 06/02/19 09:00 06/02/19 09:23 Cardizem Cd PO 180 mg DAILY ROMA Administration Ferrous Sulfate 325 mg 06/01/19 17:00 06/02/19 09:23 Feosol PO 325 mg BID-WM ROMA Administration Furosemide 40 mg 06/02/19 09:00 06/02/19 09:24 Lasix PO 40 mg DAILY ROMA Administration Hydroxyzine HCl 25 mg 05/29/19 23:35 05/29/19 23:52 Atarax PO 25 mg HS PRN Administration insomnia Nicotine 14 mg 05/29/19 23:42 06/01/19 01:37 Nicoderm Patch TD 14 mg Q24HR PRN Administration Smoking Cessation Pantoprazole Sodium 40 mg 05/31/19 09:00 06/02/19 09:24 Protonix PO 40 mg DAILY ROMA Administration Sodium Chloride 10 ml 05/31/19 09:00 06/02/19 09:24 Flush - Normal Saline IVF 10 ml Q12HR ROMA Administration Sodium Chloride 10 ml 05/31/19 07:39 05/31/19 18:51 Flush - Normal Saline IVF 10 ml PRN PRN Administration Saline Flush - Exam General Appearance: NAD, awake alert Eye: PERRL, anicteric sclera ENT: normocephalic atraumatic, no oropharyngeal lesions Neck: supple, symmetric, no JVD, no thyromegaly Heart: RRR, no murmur, no gallops, no rubs Respiratory: CTAB, no wheezes, no rales, no ronchi Gastrointestinal: soft, non-tender, non-distended, normal bowel sounds Extremities: no cyanosis, no clubbing, no edema Skin: normal turgor, no lesions Neurological: cranial nerve grossly intact, no focal deficits Musculoskeletal: normal tone, normal strength Psychiatric: normal affect, normal behavior Hosp A/P (1) GI bleed Code(s): K92.2 - GASTROINTESTINAL HEMORRHAGE, UNSPECIFIED Status: Acute (2) Anemia due to blood loss Code(s): D50.0 - IRON DEFICIENCY ANEMIA SECONDARY TO BLOOD LOSS (CHRONIC) Status: Acute (3) Anemia, iron deficiency Code(s): D50.9 - IRON DEFICIENCY ANEMIA, UNSPECIFIED Status: Acute (4) Acute diastolic heart failure Code(s): I50.31 - ACUTE DIASTOLIC (CONGESTIVE) HEART FAILURE Status: Acute (5) Atrial fibrillation with rapid ventricular response Code(s): I48.91 - UNSPECIFIED ATRIAL FIBRILLATION Status: Acute - Plan old records reviewed/req, continue antibiotics 05/31/19 continue cardizem for rate control continue protonix will give IV iron today not a candidate for chronic anticoagulation medication reviewed and continue to provide symptomatic treatment and supportive care today EGD, colonoscopy 06/01/19 start cardizem CD 180 mg po daily wean off cardizem drip give venofer add ferrous sulfate PO expecting dc tomorrow outpt decision for anticoagulation 06/02/19 possible dc if cardio ok give iv iron before dc add low dose of aspirin anticoagulation contraindicated due to severe anemia
--- NOTE | 2019-06-02 12:09 | DIS ---
DATE OF ADMISSION: 05/29/2019 DATE OF DISCHARGE: 06/02/2019 PRIMARY CARE PHYSICIAN: Dr. Glaser. DISCHARGE DISPOSITION: Home. PRIMARY DISCHARGE DIAGNOSES: 1. Severe symptomatic anemia due to iron deficiency, probably due to chronic blood loss. 2. Acute diastolic heart failure. 3. Atrial fibrillation with rapid ventricular response, new onset. SECONDARY DISCHARGE DIAGNOSES: 1. Obesity with BMI 33. 2. Umbilical hernia. PRIMARY PROCEDURE/OPERATION: The patient had EGD and colonoscopy, which were essentially unremarkable. Polyp was removed and biopsy obtained from duodenum. RADIOLOGICAL INVESTIGATION: Echocardiography showed normal EF. Chest x-ray showed mild interval improvement in pulmonary vascular congestion. SIGNIFICANT LABORATORY DATA: WBC 7.3, hemoglobin 7.3, platelet 292. Sodium 143, potassium 3.6, BUN 6, creatinine 0.64, calcium 8.7. LFT normal. Ferritin less than 2. Digoxin level 0.53. Blood culture negative. DISCHARGE MEDICATIONS: 1. Aspirin 81 mg p.o. daily. 2. Digoxin 0.25 mg p.o. daily. 3. Cardizem CD 180 mg p.o. daily. 4. Ferrous sulfate 325 mg p.o. b.i.d. 5. Lasix 20 mg daily. 6. Protonix 40 mg p.o. daily. CONTRAINDICATION: The patient is not on chronic anticoagulation therapy because of severe anemia and that will be decided as an outpatient basis. CODE STATUS: Full code. INPATIENT ICER MACHINE: Dr. Pizarro, Gastroenterology was consulted for severe anemia and they did EGD and colonoscopy. Cardiology group, Dr. Mayorga was following while in hospital. TEST RESULTS PENDING ON DISCHARGE: Pathology report from polyp. DISCHARGE PLAN: Posthospital, the patient is instructed to follow up with primary care physician in one week. The patient is instructed to follow up with Cardiology and Gastroenterology. HOSPITAL COURSE: A 68-year-old female who was admitted by Family Medicine physician. Please see their H and P for further details. During this admission, the patient was found with a severe symptomatic anemia. The patient was having fatigue, dizziness, palpitation. On admission, her hemoglobin was 6.1. She was given a unit of blood transfusion, but unfortunately the patient developed transfusional reaction and that is why we have to stop blood transfusion. Subsequently, we did an anemia workup and found with severe iron-deficiency anemia and we were giving her every day iron infusion while in the hospital. Gastroenterology was consulted and they did an EGD and colonoscopy. Biopsy was obtained from duodenum and polyp was removed from colon. Pathology report is pending. Regarding the patient, also has new onset of atrial fibrillation with RVR and that was controlled with Cardizem drip. Cardiology was consulted. The patient was also having symptoms of CHF that we attributed due to high output failure from anemia as well as from atrial fibrillation. Her EF was normal. The patient was treated with diuresis while in the hospital. Her rate was under control with digoxin and Cardizem and the patient was changed to p.o. medication. On discharge, we started p.o. Lasix as well as low dose of aspirin. At this point, the patient is not a good candidate for chronic anticoagulation because of anemia and that is why that will be decided as an outpatient basis. The patient is seen and examined at bedside today. Plan of care discussed with the patient's . If Cardiology okay, then we will consider discharging her home later on today. The patient is on room air and she is hemodynamically stable. Job ID: [id number]
--- NOTE | 2019-06-02 13:59 | PRG ---
DATE OF SERVICE: 06/02/2019 SUBJECTIVE: Ms. Stock had a dark stool after starting iron supplementation yesterday. She has had some abdominal discomfort with that as well. Otherwise, no acute changes. OBJECTIVE: VITAL SIGNS: Temperature is 97.6, pulse 95, blood pressure 121/68. GENERAL: She is in no acute distress. Alert and oriented x3. LUNGS: Clear to auscultation bilaterally. HEART: Regular rate and rhythm without murmur. ABDOMEN: Soft, nontender, nondistended. Bowel sounds are present. EXTREMITIES: No lower extremity edema. IMPRESSION: 1. Iron deficiency anemia. No bleeding source was identified by upper and lower endoscopy yesterday. Her hemoglobin is stable today. 2. Atrial fibrillation with rapid ventricular response. RECOMMENDATIONS: 1. Anticipate discharge home today. 2. We will plan on scheduling outpatient capsule endoscopy as soon as possible to help identify a bleeding source. 3. She currently is not receiving anticoagulation due to the unexplained iron deficiency anemia, which was severe on presentation requiring transfusion. 4. Continue proton pump inhibitor daily. Job ID: [id number]
[2019-06-02 15:17] VITALS: BP 110/57; TEMP 97.9
== END 2019-06-02 15:51 | disposition home or self-care (01) | DRG 811 ==
LOC: 2NO 19:53
PROVIDERS: ADMIT Emergency Medicine; ATTEND Emergency Medicine
PROC: 30233N1 Transfusion of Nonautologous Red Blood Cells into Peripheral Vein, Percutaneous Approach (ICD-10-PCS; 2019-05-30)
PROC: 0DB98ZX Excision of Duodenum, Via Natural or Artificial Opening Endoscopic, Diagnostic (ICD-10-PCS; principal; 2019-05-31)
PROC: 0DBM8ZZ Excision of Descending Colon, Via Natural or Artificial Opening Endoscopic (ICD-10-PCS; 2019-05-31)
DX: D50.0 Iron deficiency anemia secondary to blood loss (chronic) (principal); I50.31 Acute diastolic (congestive) heart failure; I48.91 Unspecified atrial fibrillation; I11.0 Hypertensive heart disease with heart failure; K42.9 Umbilical hernia without obstruction or gangrene; F41.9 Anxiety disorder, unspecified; K21.9 Gastro-esophageal reflux disease without esophagitis; E66.9 Obesity, unspecified; F17.210 Nicotine dependence, cigarettes, uncomplicated; K57.30 Diverticulosis of large intestine without perforation or abscess without bleeding; K64.8 Other hemorrhoids; K63.5 Polyp of colon; K80.20 Calculus of gallbladder without cholecystitis without obstruction; G47.00 Insomnia, unspecified; Z79.01 Long term (current) use of anticoagulants; Z68.33 Body mass index [BMI] 33.0-33.9, adult; Z90.710 Acquired absence of both cervix and uterus
CPT/HCPCS: 36415; 36430; 71045; 80048; 80061; 80162; 82728; 83540; 83550; 83735; 84443; 84466; 85025; 85060; 86850; 86900; 86901; 87040; 88305; 90471; 90662; 90670; 93306; G0008; G0009; J1160; J1940; J2704; J2916; J3490; J7050; P9016

== ENCOUNTER 2021-02-09 09:12 | Outpatient (CLI) | payer MEDICARE, OTHER ==
[2021-02-09 10:11] LABS: Estimated GFR-MDRD - POC Greater than 90
== END 2021-02-09 09:13 | disposition home or self-care (01) ==
LOC: CT 09:12
PROVIDERS: ATTEND Internal Medicine Hematology & Oncology
DX: C50.211 Malignant neoplasm of upper-inner quadrant of right female breast (principal); J43.9 Emphysema, unspecified; N63.10 Unspecified lump in the right breast, unspecified quadrant; R91.1 Solitary pulmonary nodule
CPT/HCPCS: 71260; 78306; 82565; A9503

== ENCOUNTER 2021-03-30 12:15 | Outpatient (CLI) | payer MEDICARE, OTHER ==
[2021-03-30 13:46] LABS: #Basophils 0.1 10x3/uL (0.0-0.2); #Eosinphils 0.1 10x3/uL (0.0-0.5); #Monocytes 0.6 10x3/uL (0.0-1.1); #Neutrophils 5.3 10x3/uL (1.5-8.4); %Eosinophils 0.7 % (0.0-6.0); %Lymphocytes 26.7 % (18.0-47.0); %Monocytes 7.3 % (0.0-10.0); %Neutrophils 63.9 % (40.0-75.0); Hemoglobin 15.4 g/dL (12.0-15.5); Mean Corpuscular HGB CONC 31.8 g/dL (32.0-36.0); Mean Corpuscular Hemoglobin 27.4 pg (27.0-33.0); Mean Corpuscular Volume 86.1 fl (81.6-98.3); Mean Platelet Volume 10.2 fl (7.4-10.4); Platelet Count 258 10x3/uL (150-450); RBC Distribution Width 13.9 % (11.5-14.5); Red Blood Cell (RBC) Count 5.62 10x6/uL (3.90-5.03); White Blood Cell (WBC) Count 8.4 10x3/uL (3.5-10.5)
[2021-03-30 14:09] LABS: ALT (SGPT) 19 U/L (8-55); AST (SGOT) 14 U/L (5-34); Albumin 4.4 g/dL (3.4-4.8); Alkaline Phosphatase 63 U/L (40-110); Anion Gap 13 mmol/L (10-20); BUN (Urea Nitrogen) 10 mg/dL (9.8-20.1); Bilirubin, Total 0.6 mg/dL (0.2-1.2); Calc. Creatinine Clearance 0 mL/min (70-130); Carbon Dioxide 25 mmol/L (23-31); Chloride 109 mmol/L (98-107); Globulin 2.5 g/dL (2.4-3.5); Glucose 91 mg/dL (80-115); Potassium 3.9 mmol/L (3.5-5.1); Protein, Total 6.9 g/dL (5.8-8.1); Sodium 143 mmol/L (136-145)
[2021-03-30 21:37] LABS: SARS-CoV-2 PCR by NAA Not Detected (NotDetected)
== END 2021-03-30 12:16 | disposition home or self-care (01) ==
LOC: LABBT 12:15
PROVIDERS: ATTEND Surgery
DX: Z01.812 Encounter for preprocedural laboratory examination (principal); C50.911 Malignant neoplasm of unspecified site of right female breast; Z20.822 Contact with and (suspected) exposure to COVID-19
CPT/HCPCS: 80053; 85025; U0003; U0005

== ENCOUNTER 2021-03-30 12:30 | Inpatient (IN) | payer MEDICARE, OTHER ==
[2021-04-01 16:19] VITALS: BMI 25.8
[2021-04-04] MEDS ORDERED: Isosulfan Blue 50 MG/5 ML VIAL ONE (08:40)
[2021-04-04] MEDS ORDERED: Lidocaine 1% w/Epinephrine 1:100K 20 ML VIAL ONE (08:40)
[2021-04-04] MEDS ORDERED: Bupivacaine PF 0.5% 30 ML VIAL ONE (08:40)
[2021-04-04] MEDS ORDERED: Fentanyl 100 MCG/2 ML VIAL ONE ×4 (09:30→14:38)
[2021-04-04] MEDS ORDERED: ceFAZolin 2 GM/DEX 5% 100 ML BAG ONE (09:44)
[2021-04-04] MEDS ORDERED: Ondansetron PF 4 MG/2 ML Vial ONE (10:16)
[2021-04-04] MEDS ORDERED: Lidocaine 1% PF 5 ML VIAL ONE (10:16)
[2021-04-04] MEDS ORDERED: Dexamethasone 20 MG/5 ML VIAL ONE (10:16)
[2021-04-04] MEDS ORDERED: PROPOFOL 200 MG/20 ML VIAL ONE (10:16)
[2021-04-04] MEDS ORDERED: Rocuronium Bromide 10 MG/ML (10ML VIAL) ONE (10:16)
[2021-04-04] MEDS ORDERED: Glycopyrrolate 0.2 MG/ML 5 ML SYRINGE ONE (10:16)
[2021-04-04] MEDS ORDERED: Dextrose 5% in Water 1,000 ML IV PRN (11:57)
[2021-04-04] MEDS ORDERED: Ondansetron PF 4 MG/2 ML Vial IVP PRN (11:57)
[2021-04-04] MEDS ORDERED: Morphine 4 MG/ML VIAL SLOW IVP PRN ×2 (11:57→12:08)
[2021-04-04] MEDS ORDERED: hydrALAZINE 20 MG/ML VIAL SLOW IVP PRN (11:57)
[2021-04-04] MEDS ORDERED: Promethazine HCl 25 MG/ML VIAL IM PRN (11:57)
[2021-04-04] MEDS ORDERED: HYDROcodone/Acetaminophen 7.5/325 mg Tablet PO PRN ×2 (11:57)
[2021-04-04] MEDS ORDERED: Dextrose 50% Abboject 50 ML SYRINGE SLOW IVP PRN (11:57)
[2021-04-04] MEDS ORDERED: Promethazine HCl 25 MG/ML VIAL ONE (12:33)
[2021-04-04] MEDS: Lactated Ringer's 1,000 ML IV SCH (18:07)
[2021-04-04] MEDS: Docusate 100 MG CAP PO SCH (20:30)
[2021-04-04] MEDS: Famotidine 20 MG TAB PO SCH (20:30)
[2021-04-05] MEDS: Lactated Ringer's 1,000 ML IV SCH (01:16)
[2021-04-05 05:43] LABS: #Lymphocytes 1.2 thou/uL (1.20-3.40); #Monocytes 0.6 thou/uL (0.11-0.59); %Basophils 0.1 % (0.0-1.0); %Eosinophils 0.1 % (0.0-10.0); %Lymphocytes 13.3 % (21.0-51.0); %Monocytes 6.7 % (0.0-10.0); %Neutrophils 79.9 % (42.0-75.0); Hemoglobin 13.7 g/dL (12.0-16.0); Mean Corpuscular HGB CONC 30.7 g/dL (32.0-36.0); Mean Corpuscular Hemoglobin 27.1 pg (27.0-31.0); Mean Corpuscular Volume 88.3 fL (78.0-98.0); Mean Platelet Volume 7.3 fL (7.4-10.4); Platelet Count 221 thou/uL (130-400); RBC Distribution Width 13.4 % (11.5-14.5); Red Blood Cell (RBC) Count 5.06 mill/uL (4.20-5.40); White Blood Cell (WBC) Count 8.7 thou/uL (4.8-10.8)
[2021-04-05 06:03] LABS: Anion Gap 11 mmol/L (10-20); BUN (Urea Nitrogen) 8 mg/dL (9.8-20.1); Calc. Creatinine Clearance 111 mL/min (70-130); Calcium 9.2 mg/dL (7.8-10.44); Carbon Dioxide 27 mmol/L (23-31); Chloride 108 mmol/L (98-107); Glucose 143 mg/dL (80-115); Potassium 3.6 mmol/L (3.5-5.1); Sodium 142 mmol/L (136-145)
[2021-04-05] MEDS ORDERED: Enoxaparin Sodium 30 MG/0.3 ML SYRINGE SC SCH (09:00)
[2021-04-05] MEDS: Famotidine 20 MG TAB PO SCH (09:01)
[2021-04-05] MEDS: Docusate 100 MG CAP PO SCH (09:01)
[2021-04-05] MEDS ORDERED: Acetaminophen 325 MG TAB PO PRN (11:05)
[2021-04-05 11:12] VITALS: BP 124/77; TEMP 97.8
[2021-04-05] MEDS ORDERED: Digoxin 0.25 MG TAB PO SCH (11:15)
[2021-04-06] MEDS ORDERED: Digoxin 0.25 MG TAB PO SCH (09:00)
== END 2021-04-05 14:10 | disposition home or self-care (01) | DRG 581 ==
LOC: SURG A 04-04 07:17 → EDSTATUS 04-04 12:30 → SURG A 04-04 15:01
PROVIDERS: ADMIT Surgery; ATTEND Surgery
PROC: 0HTT0ZZ Resection of Right Breast, Open Approach (ICD-10-PCS; principal; 2021-04-04)
PROC: 07B80ZX Excision of Right Internal Mammary Lymphatic, Open Approach, Diagnostic (ICD-10-PCS; 2021-04-04)
PROC: C71LYZZ Planar Nuclear Medicine Imaging of Upper Chest Lymphatics using Other Radionuclide (ICD-10-PCS; 2021-04-04)
DX: C50.911 Malignant neoplasm of unspecified site of right female breast (principal); Z20.822 Contact with and (suspected) exposure to COVID-19; I48.91 Unspecified atrial fibrillation; I10 Essential (primary) hypertension; D64.9 Anemia, unspecified; F41.9 Anxiety disorder, unspecified; M19.90 Unspecified osteoarthritis, unspecified site; Z90.89 Acquired absence of other organs; Z90.710 Acquired absence of both cervix and uterus; Z79.84 Long term (current) use of oral hypoglycemic drugs; Z79.899 Other long term (current) drug therapy; Z79.01 Long term (current) use of anticoagulants; Z79.82 Long term (current) use of aspirin; Z87.891 Personal history of nicotine dependence; Z91.048 Other nonmedicinal substance allergy status; Z87.442 Personal history of urinary calculi
CPT/HCPCS: 36415; 78195; 80048; 85025; 88307; 88309; 88342; A9541; J1100; J1650; J2405; J2550; J2704; J3010; J7120; Q9968; S0020

== ENCOUNTER 2022-02-09 11:21 | Outpatient (CLI) | payer MEDICARE, OTHER | END 2022-02-09 11:22 | disposition home or self-care (01) | LOC: BICMAMMO 11:21 | PROVIDERS: ATTEND Internal Medicine Hematology & Oncology | DX: Z08 Encounter for follow-up examination after completed treatment for malignant neoplasm (principal); Z85.3 Personal history of malignant neoplasm of breast; F17.211 Nicotine dependence, cigarettes, in remission; Z90.11 Acquired absence of right breast and nipple | CPT/HCPCS: 77066; G0279 ==

== ENCOUNTER 2022-03-10 06:03 | Day surgery (SDC) | payer MEDICARE, OTHER ==
[2022-03-09 09:50] VITALS: BMI 25.8
[2022-03-10] MEDS ORDERED: Lidocaine 1% (PF) 30 ML VIAL ONE (06:44)
[2022-03-10] MEDS ORDERED: Bupivacaine HCl 0.5%/Epinephrine 1:200,000/PF 30 ml Vial ONE (06:44)
[2022-03-10] MEDS ORDERED: Bupivacaine/Epinephrine 0.25% 30 ML VIAL ONE ×2 (06:44→06:46)
[2022-03-10] MEDS ORDERED: fentaNYL PF 100 MCG/2 ML SYRINGE ONE (07:56)
[2022-03-10] MEDS ORDERED: CEFAZOLIN 2 GM VIAL ONE (07:57)
[2022-03-10] MEDS ORDERED: Sodium Chloride 0.9% 100 ML ONE (07:57)
[2022-03-10] MEDS ORDERED: PROPOFOL 200 MG/20 ML VIAL ONE (08:02)
[2022-03-10] MEDS ORDERED: Ketorolac Tromethamine 30 MG/ML VIAL ONE (08:02)
[2022-03-10] MEDS ORDERED: Dexamethasone 20 MG/5 ML VIAL ONE (08:02)
[2022-03-10] MEDS ORDERED: Ondansetron PF 4 MG/2 ML Vial ONE (08:02)
[2022-03-10] MEDS ORDERED: FENTANYL 50 MCG/ML 1 ML VIAL ONE (09:41)
[2022-03-10] MEDS ORDERED: HYDROcodone/Acetaminophen 5/325 mg Tablet ONE (10:52)
== END 2022-03-10 12:00 | disposition home or self-care (01) ==
LOC: SDC 06:03
PROVIDERS: ATTEND Surgery
PROC: 0WQF0ZZ Repair Abdominal Wall, Open Approach (ICD-10-PCS; principal; 2022-03-10)
PROC: 0H9AXZZ Drainage of Inguinal Skin, External Approach (ICD-10-PCS; 2022-03-10)
PROC: 0HBT0ZX Excision of Right Breast, Open Approach, Diagnostic (ICD-10-PCS; 2022-03-10)
DX: K42.9 Umbilical hernia without obstruction or gangrene (principal); L02.234 Carbuncle of groin; L03.314 Cellulitis of groin; L82.1 Other seborrheic keratosis; R22.2 Localized swelling, mass and lump, trunk; M19.90 Unspecified osteoarthritis, unspecified site; Z85.3 Personal history of malignant neoplasm of breast; Z87.891 Personal history of nicotine dependence; Z79.01 Long term (current) use of anticoagulants; Z79.811 Long term (current) use of aromatase inhibitors; Z79.82 Long term (current) use of aspirin; Z79.84 Long term (current) use of oral hypoglycemic drugs; Z79.899 Other long term (current) drug therapy; Z91.048 Other nonmedicinal substance allergy status
CPT/HCPCS: 10060; 19120; 49585; 87070; 87075; 87077; 87186; 87205; J3010; 88302; 88307; J1100; J1885; J2001; J2405; J2704; J3490

== ENCOUNTER 2022-10-19 13:59 | Outpatient (CLI) | payer MEDICARE, OTHER | END 2022-10-19 14:00 | disposition home or self-care (01) | LOC: BICCT 13:59 | PROVIDERS: ATTEND Internal Medicine Hematology & Oncology | DX: C50.211 Malignant neoplasm of upper-inner quadrant of right female breast (principal); F17.213 Nicotine dependence, cigarettes, with withdrawal | CPT/HCPCS: 71271 ==

== ENCOUNTER 2022-11-08 09:30 | Outpatient (CLI) | payer MEDICARE, OTHER | END 2022-11-08 09:31 | disposition home or self-care (01) | LOC: PET 09:30 | PROVIDERS: ATTEND Internal Medicine Hematology & Oncology | DX: C50.211 Malignant neoplasm of upper-inner quadrant of right female breast (principal); C77.9 Secondary and unspecified malignant neoplasm of lymph node, unspecified; R91.1 Solitary pulmonary nodule | CPT/HCPCS: 78815; A9552 ==

== ENCOUNTER 2022-11-22 12:32 | Outpatient (CLI) | payer MEDICARE, OTHER | END 2022-11-22 12:33 | disposition home or self-care (01) | LOC: SCSMRI 12:32 | PROVIDERS: ATTEND Internal Medicine Hematology & Oncology | DX: C50.211 Malignant neoplasm of upper-inner quadrant of right female breast (principal); C79.51 Secondary malignant neoplasm of bone; C34.11 Malignant neoplasm of upper lobe, right bronchus or lung; G93.9 Disorder of brain, unspecified; G95.89 Other specified diseases of spinal cord | CPT/HCPCS: 70553; 72156 ==

== ENCOUNTER 2022-11-24 08:14 | Day surgery (SDC) | payer MEDICARE, OTHER ==
[2022-11-24 08:37] LABS: #Basophils 0.1 thou/uL (0.0-0.2); #Eosinphils 0.1 thou/uL (0.0-0.7); #Monocytes 0.5 thou/uL (0.11-0.59); #Neutrophils 3.9 thou/uL (1.40-6.50); %Basophils 0.8 % (0.0-1.0); %Lymphocytes 28.1 % (21.0-51.0); %Monocytes 8.5 % (0.0-10.0); %Neutrophils 60.4 % (42.0-75.0); Hemoglobin 12.8 g/dL (12.0-16.0); Mean Corpuscular HGB CONC 29.2 g/dL (32.0-36.0); Mean Corpuscular Hemoglobin 22.9 pg (27.0-31.0); Mean Corpuscular Volume 78.2 fl (78.0-98.0); Mean Platelet Volume 8.8 fL (7.4-10.4); Platelet Count 335 10x3/uL (130-400); RBC Distribution Width 16.6 % (11.5-14.5); White Blood Cell (WBC) Count 6.4 10x3/uL (4.8-10.8)
[2022-11-24 08:56] LABS: INR-International Normal Ratio 1.2; PTT 28.6 sec (22.9-36.1); Prothrombin Time 15.1 sec (12.0-14.7)
== END 2022-11-24 12:15 | disposition home or self-care (01) ==
LOC: CT 08:14
PROVIDERS: ATTEND Internal Medicine Hematology & Oncology
DX: C50.211 Malignant neoplasm of upper-inner quadrant of right female breast (principal); C79.51 Secondary malignant neoplasm of bone; C34.11 Malignant neoplasm of upper lobe, right bronchus or lung; R19.09 Other intra-abdominal and pelvic swelling, mass and lump; E11.9 Type 2 diabetes mellitus without complications; D64.9 Anemia, unspecified; F17.211 Nicotine dependence, cigarettes, in remission; Z17.0 Estrogen receptor positive status [ER+]; Z79.84 Long term (current) use of oral hypoglycemic drugs; Z79.01 Long term (current) use of anticoagulants; Z79.82 Long term (current) use of aspirin; Z79.899 Other long term (current) drug therapy
CPT/HCPCS: 20225; 77012; 85025; 85610; 85730; 88307; 88333; 88341; 88342

== ENCOUNTER → 2023-03-20 | Outpatient (CLI) | payer MEDICARE, OTHER | LOC: PET 10:15 | PROVIDERS: ATTEND Internal Medicine Hematology & Oncology | DX: C50.211 Malignant neoplasm of upper-inner quadrant of right female breast (principal); C79.51 Secondary malignant neoplasm of bone | CPT/HCPCS: 78815; A9552 ==

== ENCOUNTER 2023-04-10 07:28 | Outpatient (CLI) | payer MEDICARE, OTHER | END 2023-04-10 07:29 | disposition home or self-care (01) | LOC: SCSMRI 07:28 | PROVIDERS: ATTEND Internal Medicine Hematology & Oncology | DX: C50.211 Malignant neoplasm of upper-inner quadrant of right female breast (principal); C79.51 Secondary malignant neoplasm of bone; R51.9 Headache, unspecified; G93.9 Disorder of brain, unspecified; R91.1 Solitary pulmonary nodule | CPT/HCPCS: 70553 ==

== ENCOUNTER 2023-05-02 08:01 | Day surgery (SDC) | payer MEDICARE, OTHER ==
[2023-04-27 12:20] VITALS: BMI 22.8
[2023-05-02 09:21] LABS: #Eosinphils 0.1 thou/uL (0.0-0.7); #Monocytes 0.5 thou/uL (0.11-0.59); #Neutrophils 4.2 thou/uL (1.40-6.50); %Basophils 0.7 % (0.0-1.0); %Lymphocytes 17.5 % (21.0-51.0); %Monocytes 8.6 % (0.0-10.0); %Neutrophils 71.9 % (42.0-75.0); Hematocrit 46.4 % (36.0-47.0); Mean Corpuscular HGB CONC 34.5 g/dL (32.0-36.0); Mean Corpuscular Hemoglobin 33.2 pg (27.0-31.0); Mean Corpuscular Volume 96.3 fl (78.0-98.0); Mean Platelet Volume 9.5 fL (7.4-10.4); Platelet Count 176 10x3/uL (130-400); Red Blood Cell (RBC) Count 4.82 mill/uL (4.20-5.40); White Blood Cell (WBC) Count 5.8 10x3/uL (4.8-10.8)
[2023-05-02 09:43] LABS: Anion Gap 14 mmol/L (10-20); BUN (Urea Nitrogen) 7 mg/dL (9.8-20.1); Calc. Creatinine Clearance 87 mL/min (70-130); Calcium 9.2 mg/dL (7.8-10.44); Carbon Dioxide 23 mmol/L (23-31); Chloride 106 mmol/L (98-107); Estimated GFR 95; Glucose 117 mg/dL (80-115); Potassium 3.5 mmol/L (3.5-5.1); Sodium 139 mmol/L (136-145)
[2023-05-02] MEDS ORDERED: Ipratropium/Albuterol 3 ML NEB ONE (10:08)
[2023-05-02] MEDS ORDERED: Lidocaine 4% PF 5 ML AMP ONE (10:08)
[2023-05-02] MEDS ORDERED: Lidocaine 2% PF 5 ML VIAL ONE (10:39)
[2023-05-02] MEDS ORDERED: Rocuronium Bromide 10 MG/ML (10ML VIAL) ONE (10:39)
[2023-05-02] MEDS ORDERED: SUGAMMADEX SODIUM 200 MG/2 ML VIAL ONE (10:40)
[2023-05-02] MEDS ORDERED: fentaNYL PF 100 MCG/2 ML SYRINGE ONE (10:41)
[2023-05-02] MEDS ORDERED: Ondansetron PF 4 MG/2 ML Vial ONE (11:16)
[2023-05-02] MEDS ORDERED: Lidocaine 1% PF 5 ML VIAL ONE (11:16)
[2023-05-02] MEDS ORDERED: PHENYLEPHRINE-NS 100 MCG/ML 10 ML SYRINGE ONE (11:16)
[2023-05-02] MEDS ORDERED: PROPOFOL 200 MG/20 ML VIAL ONE (11:16)
== END 2023-05-02 14:15 | disposition home or self-care (01) ==
LOC: SDC 08:01
PROVIDERS: ATTEND Internal Medicine
PROC: 0B9C8ZX Drainage of Right Upper Lung Lobe, Via Natural or Artificial Opening Endoscopic, Diagnostic (ICD-10-PCS; principal; 2023-05-02)
PROC: 0BBC8ZX Excision of Right Upper Lung Lobe, Via Natural or Artificial Opening Endoscopic, Diagnostic (ICD-10-PCS; 2023-05-02)
DX: C34.11 Malignant neoplasm of upper lobe, right bronchus or lung (principal)
CPT/HCPCS: 36415; 80048; 85025; 88112; 88172; 88173; 88177; 88305; 88341; 88342; 88361; 93005; 93010; J2001; J2405; J2704; J7620

== ENCOUNTER 2023-06-04 10:43 | Outpatient (CLI) | payer MEDICARE, OTHER ==
[2023-06-04] MEDS ORDERED: Magnevist 469MG/ML 20 ML VIAL ONE (12:12)
== END 2023-06-04 10:44 | disposition home or self-care (01) ==
LOC: MRI 10:43
PROVIDERS: ATTEND Radiology Radiation Oncology
DX: C79.31 Secondary malignant neoplasm of brain (principal); G93.89 Other specified disorders of brain
CPT/HCPCS: 70553; A9579